=== PATIENT | male | born 1975 | race Caucasian/White ===

== ENCOUNTER 2021-09-05 12:08 | Emergency (ER) | payer OTHER ==
[~2021-09-05] VITALS: Ht 185.4 cm; Wt 122.5 kg
[~2021-09-05 12:08] MED LIST: ALPR.5 PO; AMOX500 PO; CLON1 PO; FLUO20 PO; HYDACE5 PO; LAMO100 PO; LORA1 PO; NAPR375 PO; NAPR500 PO; OXYACE7.5T PO; PENVK500 PO; PROP20 PO; RXLORA1 PO
[2021-09-05] MEDS ORDERED: Aldactone100 MG PO (12:47)
== END 2021-09-05 12:56 | disposition home or self-care (01) ==
LOC: ER 12:08
DX: R60.0 Localized edema (principal); I10 Essential (primary) hypertension; E78.00 Pure hypercholesterolemia, unspecified; F17.200 Nicotine dependence, unspecified, uncomplicated
CPT/HCPCS: 99283

== ENCOUNTER 2021-10-03 07:23 | Emergency (ER) | payer OTHER ==
[~2021-10-03] VITALS: Ht 185.4 cm; Wt 126.1 kg
[~2021-10-03 07:23] MED LIST changes: +Aldactone100 MG PO
[2021-10-03 08:16] LABS: BASOPHILS ABSOLUTE AUTO 0.06 K/mm3 (0.00-0.23); BASOPHILS PERCENT AUTO 1 % (0-2); EOSINOPHILS ABSOLUTE AUTO 0.19 K/mm3 (0.00-0.68); EOSINOPHILS PERCENT AUTO 2 % (0-6); Hematocrit 43.5 % (37.0-53.0); Hemoglobin 14.9 g/dL (13.5-17.5); IMMATURE GRAN ABSOLUTE AUTO 0.03 K/mm3 (0.00-0.10); IMMATURE GRAN PERCENT AUTO 0 % (0-1); LYMPHOCYTES ABSOLUTE AUTO 3.16 K/mm3 (0.84-5.20); LYMPHOCYTES PERCENT AUTO 34 % (21-46); MONOCYTES ABSOLUTE AUTO 0.74 K/mm3 (0.16-1.47); MONOCYTES PERCENT AUTO 8 % (4-13); Mean Corpuscular HGB 30.7 pg (26.0-34.0); Mean Corpuscular HGB Conc 34.3 g/dL (31.5-36.5); Mean Corpuscular Volume 90 fL (80-100); NEUTROPHILS ABSOLUTE AUTO 5.22 K/mm3 (1.96-9.15); NEUTROPHILS PERCENT AUTO 56 % (41-73); Platelet Count 238 K/mm3 (150-400); RDW Coefficient Variation 13.6 % (11.7-14.2); Red Blood Cell Count 4.85 M/mm3 (4.30-5.90)
[2021-10-03 08:32] LABS: Anion Gap 1 mmol/L (6-16); Blood Urea Nitrogen 14 mg/dL (8-24); Bun/Creatinine Ratio 15.5 (12.0-20.0); CO2, Blood 30 mmol/L (21-32); Calcium, Blood 8.9 mg/dL (8.5-10.1); Chloride, Blood 106 mmol/L (98-108); Creatinine, Blood 0.91 mg/dL (0.60-1.20); Glomerular Filtration Rate >60 (60-); Glucose, Blood 116 mg/dL (70-99); Potassium, Blood 3.8 mmol/L (3.5-5.5); Sodium, Blood 137 mmol/L (136-145)
[2021-10-03] MEDS ORDERED: ALDACTONE100 MG PO (09:00)
== END 2021-10-03 09:07 | disposition home or self-care (01) ==
LOC: ER 07:23
PROVIDERS: Emergency Medicine
DX: R60.0 Localized edema (principal); I10 Essential (primary) hypertension; E78.00 Pure hypercholesterolemia, unspecified; F17.200 Nicotine dependence, unspecified, uncomplicated
CPT/HCPCS: 36415; 80048; 85025; 93971; 99284-25

== ENCOUNTER 2024-06-25 09:09 | Emergency (ER) | payer OTHER ==
[~2024-06-25] VITALS: Ht 185.4 cm; Wt 122.5 kg
[~2024-06-25 09:09] MED LIST changes: +ALDACTONE100 MG PO
[2024-06-25 09:45] VITALS: BP 165/97
[2024-06-25] MEDS ORDERED: Amoxicillin/Clavulanate K 875 MG Tab PO ONE (09:50)
[2024-06-25] MEDS ORDERED: Dexamethasone Sod Phos 10 MG/ML 1ML VIAL PO ONE (09:50)
[2024-06-25] MEDS ORDERED: AMOCLA875 PO (09:51)
== END 2024-06-25 10:24 | disposition home or self-care (01) ==
LOC: ER 09:09
DX: K08.89 Other specified disorders of teeth and supporting structures (principal); R22.0 Localized swelling, mass and lump, head
CPT/HCPCS: A9270; J1100